=== PATIENT | female | born 1935 | race Caucasian/White ===

== ENCOUNTER 2017-06-21 16:30 | Inpatient (IN) | payer OTHER ==
[~2017-06-21] VITALS: Ht 167.6 cm; Wt 58.1 kg
[~2017-06-21 16:30] MED LIST: CENTRUM SILVER1 EAC4 PO; FLEXI JOINT TA1 EAC1 PO; NOHOMEMEDICATIONS; VICODIN PO
[2017-06-21 16:31] VITALS: BP 166/76
[2017-06-21] MEDS ORDERED: B-COMPLEX-VITA1 EACH PO (16:40)
[2017-06-21 17:05] LABS: URINE BILIRUBIN NEGATIVE (Negative); URINE BLOOD 1+ (Negative); URINE CLARITY CLEAR; URINE COLOR YELLOW; URINE GLUCOSE-RANDOM NEGATIVE (Negative); URINE KETONES 1+ (Negative); URINE LEUKOCYTES-REFLEX TRACE (Negative); URINE NITRITE-REFLEX NEGATIVE (Negative); URINE PROTEIN NEGATIVE (Negative); URINE SPECIFIC GRAVITY <= 1.005 (1.005-1.030); URINE UROBILINOGEN 0.2 E.U./dl (0.2-1.0)
[2017-06-21 17:13] LABS: MUCUS None Seen strn/LPF (None Seen); SQUAMOUS 4-10 Moderate /LPF (0-3); URINE RBC 3-10 Few /HPF (0-2); URINE WBC-REFLEX 0-5 Rare /HPF (0-5)
[2017-06-21 17:14] LABS: BACTERIA-REFLEX 1-9 Few /HPF (None Seen); CASTS None Seen /LPF (None Seen); CRYSTALS None Seen /LPF (None Seen)
[2017-06-21 17:20] LABS: ABSOLUTE EOSINOPHILS 0.1 thou/uL (0.0-0.7); ABSOLUTE LYMPHOCYTES 1.1 thou/uL (0.8-5.3); ABSOLUTE MONOCYTES 0.6 thou/uL (0.0-1.2); ABSOLUTE NEUTROPHILS 6.8 thou/uL (1.6-8.1); BASOPHILS 0.4 %; EOSINOPHILS 0.7 %; HEMATOCRIT 37.4 % (37.0-47.0); HEMOGLOBIN 12.7 gm/dL (12.0-15.0); LYMPHOCYTES 12.7 %; MCH 33.1 pg (26.0-34.0); MCHC 33.9 g/dL (28.0-37.0); MCV 97.5 fL (80.0-100.0); MONOCYTES 6.8 %; MPV 8.7 fl. (7.2-11.1); NUCLEATED RBCS 0 /100WBC; PLATELET COUNT* 189 thou/uL (150-400); POLYS 79.4 %; RBC 3.84 mil/uL (4.20-5.00); WBC 8.6 thou/uL (4.0-11.0)
[2017-06-21 17:28] LABS: CALCIUM 9.1 mg/dL (8.5-10.1); CREATININE 0.7 mg/dL (0.6-1.3); POTASSIUM 3.9 mmol/L (3.5-5.1)
[2017-06-21 17:33] LABS: ALBUMIN 3.4 g/dL (3.4-5.0); TOTAL BILIRUBIN 0.9 mg/dL (<0.1-1.0); TOTAL PROTEIN 6.9 g/dL (6.4-8.2)
[2017-06-21 19:52] VITALS: BP 146/83
[2017-06-21 20:29] VITALS: BP 144/74
[2017-06-22 01:03] VITALS: BP 144/74
--- NOTE | 2017-06-22 03:51 | NUR ---
PATIENT WAS ADMITTED TO UNIT AT APPROXIMATELY 2019 FROM THE ER. VSS ON RA. PAIN WELL CONTROLLED AT THIS TIME. PATIENT WAS ORIENTED TO ROOM AND POLICIES AND FALL EDUCATION GIVEN. FALL AGREEMENT SIGNED. ASSESSMENT CHARTED. PATIENT INSTRUCTED TO USE CALL LIGHT WHEN NEEDING ASSISTANCE. HOURLY ROUNDS TO BE MADE. WILL CONTINUE WITH PLAN OF CARE AND NURSING TO MONITOR.
[2017-06-22 05:16] LABS: ABSOLUTE EOSINOPHILS 0.2 thou/uL (0.0-0.7); ABSOLUTE LYMPHOCYTES 1.6 thou/uL (0.8-5.3); ABSOLUTE MONOCYTES 0.5 thou/uL (0.0-1.2); ABSOLUTE NEUTROPHILS 3.9 thou/uL (1.6-8.1); BASOPHILS 0.7 %; EOSINOPHILS 2.8 %; LYMPHOCYTES 25.8 %; MCH 33.8 pg (26.0-34.0); MCHC 34.8 g/dL (28.0-37.0); MCV 97.2 fL (80.0-100.0); MONOCYTES 7.7 %; NUCLEATED RBCS 0 /100WBC; PLATELET COUNT* 153 thou/uL (150-400); RBC 3.08 mil/uL (4.20-5.00); RDW-CV 14.6 % (10.5-14.5); WBC 6.2 thou/uL (4.0-11.0)
[2017-06-22 05:36] LABS: CALCIUM 8.1 mg/dL (8.5-10.1); CREATININE 0.7 mg/dL (0.6-1.3); POTASSIUM 3.5 mmol/L (3.5-5.1)
[2017-06-22 05:37] LABS: HEMOGLOBIN 10.4 gm/dL (12.0-15.0)
--- NOTE | 2017-06-22 08:47 | NUR ---
PATIENT HAS SLEPT WELL THROUGHOUT THE NIGHT WITHOUT ANY ISSUES. VSS ON RA. PAIN WELL CONTROLLED. PATIENT HAS REMAINED BEDREST SINCE BEING ADMITTED. CHUN TO DEPENDENT DRAINAGE WITH ADEQUATED CLEAR/YELLOW URINE OUTPUT. IV IN RIGHT AC- NS @ 100ML/HR. FALL PRECAUTIONS IN PLACE. HOURLY ROUNDS MADE. WILL CONTINUE WITH PLAN OF CARE AND NURSING TO MONITOR.
[2017-06-22 09:00] VITALS: BP 117/80
--- NOTE | 2017-06-22 14:23 | NUR ---
PT.UP IN RECLINER. SHE WAS ALERT AND ORIENTED. SHE SAID SHE LIVES ALONE. SHE IS NORMALLY INDEPENDENT AT HOME. DRIVES,COOKS,CLEANS,SHOPS. SHE WAS AT HER DAUGHTER'S HOUSE IN [place] WHEN SHE FELL. SHE IS NOT SURE HOW SHE FELL. SHE SAID SHE NORMALLY USES 2 CANES WHEN SHE WALKS AND ONLY HAD ONE. HAD HER PHONE IN THE OTHER HAND. SHE THINKS SHE JUST TRIPPED AND LOST HER BALANCE. SHE KNEW SHE HAD FX'D SOMETHING WHEN SHE FELL. DISCUSSED DISCHARGE OPTIONS WITH HER OF SKILLED, ACUTE REHAB. PT.OPEN TO OPTIONS.
--- NOTE | 2017-06-22 16:02 | NUR ---
ASSUMED CARES OF PT AT 0700. PT IN BED, BED IN LOW LOCKED POSITION. CALL BUTTON AND PERSONAL ITEMS IN PT REACH. FALL PRECAUTIONS IN PLACE. PT A&O X4, HRRR PER AUSCULTATION. LCTAB, AFEBRILE, PERRLA. LE EDEMA +1. SACRUM PINK/BLANCHABLE. RIGHT AC IV PATENT TO FLUSH/NS INFUSING 100 ML/HR. CHUN CATH PATENT WITH CLEAR YELLOW URINE. PT UP MAX ASSIST TO BEDSIDE CHAIR, GB/WALKER. PT PLEASANT, COOPERATIVE. USES CALL BUTTON APPROPRIATELY. VSS ON RA. CONSULTS PHYSICAL THERAPY, ORTHO, HIMS. REGULAR DIET. PT STABLE AT THIS TIME, WATCHING TV IN RECLINER. CHAIR ALARM ACTIVE, WAFFLE CUSHION IN CHAIR FOR PT COMFORT. WILL CONTINUE TO MONITOR PT STATUS. HOURLY ROUNDING CONTINUES.
--- NOTE | 2017-06-22 16:06 | EKG ---
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: Kal SAMANIEGO : 1935 Requested By: Jad Thakkar Order Number: [id number] MD: Jeff Shirley Measurements Intervals [place] Rate: 77 P: 76 AK: 138 QRS: 49 QRSD: 90 T: 42 QT: 380 QTc: 431 Interpretive Statements Sinus rhythm Probable left atrial enlargement Borderline low voltage, extremity leads No previous ECG available for comparison Electronically Signed On 06-22-2017 16:06:04 CDT by Jeff Shirley [email or web address] <ELECTRONICALLY SIGNED> By: Jeff Shirley MD, [facility] 06/22/17 [id number] Jeff Shirley MD, FAC /EPI
[2017-06-22 20:25] VITALS: BP 139/72
--- NOTE | 2017-06-22 20:47 | NUR ---
BEDSIDE REPORT TO DIRECTOR CORPORATE COMPLIANCE FOR CONTINUED CARES. PT REMAINS STABLE, VSS ON RA. PT IN BEDSIDE RECLINER WITH WAFFLE CUSHION AND CHAIR ALARM IN PLACE. PT SMILING, TALKATIVE, COOPERATIVE. DENIES PAIN AT SHIFT CHANGE. HOURLY ROUNDING COMPLETED. ASSESSMENTS COMPLETED. RIGHT AC 20 GAUGE IV PATENT WITH FLUIDS INFUSING. FAMILY AT BEDSIDE. MEALS WELL CONSUMED THIS SHIFT.
--- NOTE | 2017-06-23 05:21 | NUR ---
PATIENT ALERT AND ORIENTED, FORGETFUL. VITALS STABLE. RA. CHUN TO DEPENDENT DRAINAGE. FLUIDS INFUSING PER ORDER. PO PAIN MEDICATION GIVEN X 1. PATIENT DENIES NEED FOR ADDITIONAL PAIN MEDICATION. REPOSITIONED EVERY TWO HOURS. HOURLY ROUNDS. BED ALARM IN USE. NURSING WILL CONTINUE TO MONITOR.
[2017-06-23 08:30] VITALS: BP 159/84
--- NOTE | 2017-06-23 11:14 | NUR ---
ASSUMED CARES OF PT AT 0700. PT IN BED, BED IN LOW LOCKED POSITION, FALL PRECAUTIONS IN PLACE. CALL BUTTON AND PERSONAL ITEMS IN PT REACH. PT A&O X4, OCC CONFUSED AND FORGETFUL, FRIENDLY, SMILING AND COOPERATIVE. HRRR PER AUSCULTATION, LCTAB/DIMINISHED LL BILATERALLY. VSS ON RA, PT DENIES PAIN LONG SHE DOES NOT MOVE TOO MUCH. RIGHT AC 20 GAUGE IV PATENT WITH NS INFUSING 100 ML/HR. AFEBRILE, PERRLA. PT UP 1-2 ASSIST TO BEDSIDE CHAIR. Q2 TURNS, HOURLY ROUNDING CONTINUES. WAFFLE CUSHION AND CHAIR ALARM IN RECLINER UNDER PT. PT PROGRESSING TOWARDS GOAL. WILL CONTINUE TO MONITOR PT STATUS.
[2017-06-23 16:00] VITALS: BP 141/82
--- NOTE | 2017-06-23 17:05 | NUR ---
SPOKE WITH PT. ABOUT DISCHARGE PLANNING. LEFT HER A LIST OF SKILLED FACILITIES IN NETWORK FOR HER INSURANCE. SHE SAID HER DAUGHTER,MARK, IS WANTING TO TALK TO THE DRMonica TO SEE WANT THEIR PLAN IS . PT.SAID ONE DRMonicaTOLD HER SHE HAS A FX PELVIS AND ONE SAID SHE DIDN'T. PT.TALKING IN CIRCLES, SHE DOESN'T UNDERSTAND WHY THEY WOULD WANT HER TO DO THERAPY IF HER PELVIS IS FX. CM CALLED MARK AT HOME AND EXPLAINED THAT MOM WILL NEED SNF AT DISCHARGE. SHE WILL CALL HER MOM TO TRY TO TALK TO HER. NURSING GAVE HER OFFICE NUMBER AND CM WILL ATTMEPT TO NOTIFY ONE OF THE THAT SHE WOULD LIKE TO SPEAK WITH HIM. MARK WOULD LIKE MOM TO BE AT [facility] IN [place] IF HER MOM IS AGREEABLE.
--- NOTE | 2017-06-23 18:07 | NUR ---
REPORT TO BE GIVEN TO HOSE SUSPENDER CUTTER FOR CONTINUED CARES. PT A&O X4 BUT FORGETFUL AND OCC. CONFUSED. VSS ON RA, REMAINS AFEBRILE. PT UP TWO ASSIST WITH WALKER AND GB TO BSC. RIGHT AC 20 GAUGE IV PATENT TO FLUSH/SALINE LOCKED. Q2 TURN, WAFFLE CUSHION WHILE IN RECLINER. PAIN DOES NOT COMPLAIN OF PAIN, TYLENOL MED OF PT CHOICE. PT PROGRESSING TOWARDS GOAL. PHYSICAL AND OCCUPATIONAL THERAPY CONSULTED. ORTHO CONSULTED, DR. AVENDAÑO. WILL CONTINUE TO MONITOR PT STATUS. PT MEAL INTAKE GOOD, EATS 100% OF MEALS. ASSESSMENTS COMPLETED.
[2017-06-23 21:00] VITALS: BP 148/76
--- NOTE | 2017-06-24 05:13 | NUR ---
PATIENT HAS REMAINED ALERT AND ORIENTED X 4 THROUGHOUT THE SHIFT AND RESTING QUIETLY ON HOURLY ROUNDS. IN CHAIR AT START OF SHIFT. ASSIST TO BED MOD ASSIST OF ONE SIT TO STAND WITH GAIT BELT AND WALKER. VERY SLOW MOVING TO BED. POOR POSTURE. BSC FIRST VOID AT HS PRIOR TO GETTING INTO BED. VOIDS OVERNIGHT PER BEDPAN DUE TO POST-CHUN REMOVAL URGENCY. JOHN-PAD IN PLACE. DECLINED PAIN MEDICATION UNTIL 6 WHEN TWO PLAIN TYLENOL PROVIDED. PATIENT DEMONSTRATED SIGNIFICANT PAIN WITH ALL ACTIVITY BUT RELUCTANT TO TAKE MEDICATION. VITAL SIGNS STABLE. TURNS AT PATIENT DIRECTION. SEE PCI. CONTINUE TO MONITOR.
[2017-06-24 08:45] VITALS: BP 141/78
--- NOTE | 2017-06-24 14:25 | NUR ---
[facility] CALLED AND HAS INSURANCE AUTH FOR PT. TO COME TO THEIR FACILITY TODAY. FAXED DISCHARGE ORDERS TO HER. SHE SAID THEY DID NOT HAVE TRANSPORTATION TODAY. CM SET UP TRANSPORTATION FIRST AVAILABLE VAN FOR [phone]. INFORMED PT.AND DAUGHTER,MARK. CHART COPIED TO GO WITH PT. NURSING TO CALL REPORT.
[2017-06-24 14:55] VITALS: BP 141/78
[2017-06-24] MEDS ORDERED: CEFDINIR300 MG PO (15:02)
[2017-06-24] MEDS ORDERED: HYDROCODONE-AP1 EAC6 PO (15:02)
[2017-06-24 16:19] VITALS: BP 141/78
--- NOTE | 2017-06-24 16:31 | NUR ---
PATIENT LEFT TO GO RETIREMENT IN [place]. PATIENT WAS IN STABLE CONDITION. BELONGINGS GATHERED UP AND SENT WITH FILLING AND STAPLING MACHINE OPERATOR ALONG WITH CHART COPY AND PRESCRIPTIONS. LEFT VIA WHEEL CHAIR WITH BLANKET BINDER.
== END 2017-06-24 16:10 | DRG 554 ==
LOC: M.ERS 16:30 → M.ORTHSURG 18:09 → M.TBA-ER 18:09 → M.ORTHSURG 18:38
PROVIDERS: Nurse Practitioner Psychiatric/Mental Health; ADMIT Internal Medicine
DX: M87.851 Other osteonecrosis, right femur (principal); M80.051A Age-related osteoporosis with current pathological fracture, right femur, initial encounter for fracture; N39.0 Urinary tract infection, site not specified; L03.115 Cellulitis of right lower limb; M16.11 Unilateral primary osteoarthritis, right hip; E86.0 Dehydration; M12.812 Other specific arthropathies, not elsewhere classified, left shoulder; W01.0XXA Fall on same level from slipping, tripping and stumbling without subsequent striking against object, initial encounter; Y93.89 Activity, other specified; Y92.89 Other specified places as the place of occurrence of the external cause; Y99.8 Other external cause status